=== PATIENT | male | born 1960 | race African-American/Black ===

== ENCOUNTER 2019-02-08 18:21 | Inpatient (IN) | payer MEDICARE ==
[2019-02-08 20:34] LABS: #Basophils 0.1 thou/uL (0.0-0.2); #Eosinphils 0.2 thou/uL (0.0-0.7); #Lymphocytes 1.1 thou/uL (1.20-3.40); #Monocytes 0.5 thou/uL (0.11-0.59); %Basophils 1.3 % (0.0-1.0); %Lymphocytes 28.9 % (21.0-51.0); %Monocytes 12.8 % (0.0-10.0); Hemoglobin 10.8 g/dL (14.0-18.0); Mean Corpuscular HGB CONC 33.5 g/dL (32.0-36.0); Mean Corpuscular Hemoglobin 30.2 pg (27.0-31.0); Mean Corpuscular Volume 90.4 fL (78.0-98.0); Mean Platelet Volume 7.2 fL (7.4-10.4); Platelet Count 283 thou/uL (130-400); RBC Distribution Width 14.2 % (11.5-14.5); Red Blood Cell (RBC) Count 3.57 mill/uL (4.70-6.10); White Blood Cell (WBC) Count 3.8 thou/uL (4.8-10.8)
[2019-02-08 20:52] LABS: Anion Gap 12 mmol/L (10-20); BUN (Urea Nitrogen) 60 mg/dL (8.4-25.7); Calc. Creatinine Clearance 0 mL/min (70-130); Calcium 8.9 mg/dL (7.8-10.44); Carbon Dioxide 18 mmol/L (23-31); Chloride 112 mmol/L (98-107); Estimated GFR-MDRD 10; Glucose 91 mg/dL (80-115); Potassium 4.1 mmol/L (3.5-5.1); Sodium 138 mmol/L (136-145)
[2019-02-08] MEDS ORDERED: Ondansetron ODT 4 MG TAB SL PRN (21:43)
[2019-02-08] MEDS ORDERED: Ondansetron PF 4 MG/2 ML Vial IVP PRN (21:43)
[2019-02-08 22:33] VITALS: BMI 51.7
[2019-02-08] MEDS: diphenhydrAMINE 25 MG CAP PO PRN (22:51)
--- NOTE | 2019-02-09 00:11 | PDOC.EVN ---
Event Note - Event Note Event Note: H&P dictated [id number]
[2019-02-09] MEDS ORDERED: Furosemide 40 MG/4 ML VIAL SLOW IVP SCH (00:15)
--- NOTE | 2019-02-09 04:51 | HP ---
CHIEF COMPLAINT: Shortness of breath and leg swelling. HISTORY OF PRESENT ILLNESS: Mr. Ozuna is a 59-year-old male with past medical history of chronic kidney disease, congestive heart failure, sleep apnea, hypertension, diabetes, among others, transferred from [facility] at [place] with diagnosis of acute on chronic renal failure. The patient presented to the ED at [place] with shortness of breath, increasing swelling of both legs. The patient was evaluated by cardiologists over there. The patient has a history of chronic kidney disease and been seen by Dr. Zurita in the past. In the emergency room, the patient was found to have pitting edema, tachypneic, and has had increasing creatinine to 6.9. Hemoglobin was 9.3 and BUN is 150. Chest x-ray showed no acute findings. Troponin negative. The patient is being admitted to the hospital for further management and home maker is being consulted. PAST MEDICAL HISTORY: 1. Chronic kidney disease. 2. Sleep apnea. 3. Congestive heart failure. 4. CVA. 5. Diabetes. 6. Hypertension. PAST SURGICAL HISTORY: 1. Appendectomy. 2. Cholecystectomy. SOCIAL HISTORY: Denies alcohol use. He is a former smoker. ALLERGIES: LISINOPRIL. HOME MEDICATIONS: Please see home medications reconciliation form for updated medications. FAMILY HISTORY: Reviewed and noncontributory. REVIEW OF SYSTEMS: Review of 14-systems negative today except what is mentioned in the history of present illness. PHYSICAL EXAMINATION: VITAL SIGNS: Initial blood pressure was 161/115, latest blood pressure is 144/95; respiratory rate is 28, now it is 24; temperature is 98.7; pulse of 94. HEAD AND NECK: Normocephalic and atraumatic. Neck is supple. CHEST: Decreased air entry bilaterally. HEART: S1 and S2 regular. ABDOMEN: Obese and soft. Bowel sounds present. NEUROLOGIC: Awake, alert, and oriented x3. PSYCHIATRIC: Normal mood. EXTREMITIES: 2+ pedal edema. LABORATORY DATA: BUN is 60, creatinine 6.9, potassium 4.1. Hemoglobin 10.8, hematocrit 32.3, glucose 91. ASSESSMENT AND PLAN: 1. Acute on chronic renal failure. 2. Hypertension. 3. Diabetes. 4. Coronary artery disease. 5. History of CVA. 6. Hyperlipidemia. PLAN: 1. Admit. 2. We will give 1 dose of IV Lasix and reassess in a.m. 3. We will consult patient's home maker, Dr. Zurita, for evaluation and further recommendations. 4. We will reconcile home meds. 5. Deep venous thrombosis prophylaxis with SCDs, gradually ambulation. EXPECTED LENGTH OF STAY: At least 1 midnight if the patient is stable and cleared by Nephrology. Job ID: [id number]
[2019-02-09] MEDS: glipiZIDE 5 MG TAB PO SCH ×2 (08:38→20:48)
[2019-02-09] MEDS: Allopurinol 300 MG TAB PO SCH (08:38)
[2019-02-09] MEDS: Carvedilol 25 MG TAB PO SCH ×2 (08:38→20:48)
[2019-02-09] MEDS: Aggrenox 200-25mg CAP PO SCH ×2 (08:38→20:48)
[2019-02-09] MEDS: Famotidine 20 MG TAB PO SCH ×2 (08:38→20:48)
[2019-02-09] MEDS: NIFEdipine XL 30 MG TAB PO SCH (08:39)
[2019-02-09] MEDS: Sodium Bicarbonate Tab 325 MG TAB PO SCH ×3 (08:40→20:49)
[2019-02-09] MEDS: Tamsulosin HCl 0.4 MG CAP PO SCH (08:41)
[2019-02-09 10:05] LABS: HBSAB Concentration 1.29 mIU/mL; HBSAg Index 0.12 S/CO (0-0.99); Hep B Surf AB Non-Reactive (NonReactive); Hep B Surf Ag Non-Reactive S/CO (NonReactive); Hep C IgG Ab Non-Reactive (NonReactive); Hep C Index 0.04 S/CO (0-0.79)
--- NOTE | 2019-02-09 10:33 | CON ---
DATE OF CONSULTATION: REASON FOR CONSULTATION: Generalized edema, progressive rise in creatinine. HISTORY OF PRESENT ILLNESS: This is a very pleasant 59-year-old gentleman who presented to the hospital earlier this morning for progressive rise in creatinine and shortness of breath and leg swelling. The patient denies any nausea, vomiting, or chest pain. PAST MEDICAL HISTORY: CKD, stage 5; hypertension; sleep apnea; congestive heart failure; and CVA. PAST SURGICAL HISTORY: Appendectomy, cholecystectomy. SOCIAL HISTORY: No alcohol or drug use. FAMILY HISTORY: Negative for ESRD. ALLERGIES: REVIEWED. HOME MEDICATIONS: List reviewed. REVIEW OF SYSTEMS: Fifteen-point review of systems was performed, negative except for positives noted above. GENERAL: HEAD: NECK: No swelling or lumps. NOSE: No epistaxis or discharge. EYES: No diplopia or pain. RESPIRATORY: CARDIOVASCULAR: GASTROINTESTINAL: /COMPOSITION ROOFER: MUSCULOSKELETAL: No joint pain. NEUROPSYCHIATIC SYSTEMS: No suicidal ideation. No ideation. SKIN: Denies any rash or ulcer. CONSTITUTIONAL: No fever or chills. PHYSICAL EXAMINATION: See above. The patient is awake, alert. VITAL SIGNS: Afebrile, pulse 76, breathing 16, and blood pressure 149/90. GENERAL APPEARANCE AND MENTAL STATUS: Fair. HEAD/NECK: Normocephalic. Atraumatic. EYES: EOMI. No deformity. EARS: Clear. No ulcers. NOSE: Intact. No lesions. MOUTH: Clear. No discharge. THROAT: Clear. No exudate. LUNGS: Clear. No crackles. CARDIAC: S1, S2. No rub. ABDOMEN: Benign. Bowel sounds positive. GENITALIA/RECTUM: Samson absent. BACK/EXTREMITIES: Edema 0+. NEUROLOGICAL: Alert and motor intact. SKIN: LYMPHATICS: LABORATORY DATA: Hemoglobin 10.8. Potassium is 4.1, creatinine 6.9. ASSESSMENT AND PLAN: 1. Chronic kidney disease, stage 5, progressive rise in creatinine and generalized edema, failed diuretic therapy. We will plan dialysis. 2. Hypertension, stable. 3. Anemia, stable. 4. Medication based on GFR appropriate. Job ID: [id number]
[2019-02-09 11:11] LABS: Hep B Core Total Ab Reactive (NonReactive); Hep B Core Total Index 10.84 S/CO (0-0.79)
--- NOTE | 2019-02-09 12:20 | ULT ---
ULTRASOUND VESSEL MAPPING DIALYSIS ACCESSS: Date: 02/09/19 HISTORY: Chronic kidney disease. COMPARISON: None. FINDINGS: RIGHT UPPER EXTREMITY BRACHIAL ARTERY: 0.61 cm RADIAL ARTERY: 0.30 cm ULNAR ARTERY: 0.27 cm CEPHALIC VEIN Proximal Arm: 0.20 cm Mid Arm: 0.15 cm Distal Arm: 0.16 cm Antecubital Fossa: 0.16 cm Proximal Forearm: 0.10 cm Mid Forearm: 0.08 cm Distal Forearm: 0.13 cm BASILIC VEIN Proximal Arm: 0.47 cm Mid Arm: 0.38 cm Distal Arm: 0.34 cm Antecubital Fossa: 0.26 cm Proximal Forearm: 0.22 cm Mid Forearm: 0.13 cm Distal Forearm: 0.11 cm LEFT UPPER EXTREMITY BRACHIAL ARTERY: 0.58 cm RADIAL ARTERY: 0.32 cm ULNAR ARTERY: 0.27 cm CEPHALIC VEIN Proximal Arm: 0.15 cm Mid Arm: 0.15 cm Distal Arm: 0.13 cm Antecubital Fossa: 0.18 cm Proximal Forearm: 0.15 cm Mid Forearm: 0.15 cm Distal Forearm: 0.17 cm BASILIC VEIN Proximal Arm: 0.26 cm Mid Arm: 0.26 cm Distal Arm: 0.16 cm Antecubital Fossa: 0.17 cm Proximal Forearm: 0.12 cm Mid Forearm: 0.17 cm Distal Forearm: 0.09 cm Bilateral axillary and subclavian veins are patent. Left internal jugular vein is patent, as well as the right internal jugular vein. IMPRESSION: Vascular size as above. POS: [facility]
--- NOTE | 2019-02-09 14:08 | PDOC.HOSPP ---
- Subjective Encounter Date: 02/09/19 Encounter Time: 09:20 Subjective: Pt seen for followup re: ESRD needing dialysis. says he feels well, no complaints. - Objective Vital Signs & Weight: Vital Signs (12 hours) Temp Pulse Resp BP BP Pulse Ox 02/09/19 11:03 97.3 F L 73 26 H 141/82 H 98 02/09/19 08:39 76 154/99 H 02/09/19 08:38 94 L 02/09/19 07:49 98.1 F 76 18 148/98 H 94 L 02/09/19 04:30 97.8 F 86 18 127/80 94 L Weight Weight 310 lb 13.628 oz I&O: 02/08/19 02/09/19 02/10/19 06:59 06:59 06:59 Intake Total 450 Balance 450 Result Diagrams: 02/08/19 20:26 02/08/19 20:26 Additional Labs: Accuchecks 02/09/19 02/09/19 02/09/19 12:15 11:38 04:35 POC Glucose 138 H 65 L 96 02/08/19 20:06 POC Glucose 101 Labs and MARs reviewed by ar Hospitalist ROS - Review of Systems Cardiovascular: denies: chest pain, palpitations, orthopnea, paroxysmal noc. dyspnea, edema, light headedness Gastrointestinal: denies: nausea, vomiting, abdominal pain, diarrhea, constipation, melena, hematochezia - Medication Medications: Active Medications Generic Name Dose Route Start Last Admin Trade Name Freq PRN Reason Stop Dose Admin Allopurinol 300 mg 02/09/19 09:00 02/09/19 08:38 Zyloprim PO 300 mg DAILY ADRIENNE Administration Carvedilol 25 mg 02/09/19 09:00 02/09/19 08:38 Coreg PO 25 mg BID ADRIENNE Administration Diphenhydramine HCl 25 mg 02/08/19 22:40 02/08/19 22:51 Benadryl PO 25 mg Q6H PRN Administration Itching & Insomnia Dipyridamole/Aspirin 1 cap 02/09/19 09:00 02/09/19 08:38 Aggrenox PO 1 cap BID ADRIENNE Administration Famotidine 20 mg 02/09/19 09:00 02/09/19 08:38 Pepcid PO 20 mg BID ADRIENNE Administration Glipizide 2.5 mg 02/09/19 09:00 02/09/19 08:38 Glucotrol PO 2.5 mg BID ADRIENNE Administration Nifedipine 30 mg 02/09/19 09:00 02/09/19 08:39 Procardia Xl PO 30 mg DAILY ADRIENNE Administration Sodium Bicarbonate 650 mg 02/09/19 09:00 02/09/19 13:53 Bicarbonate, Sodium PO Not Given TID ADRIENNE Sodium Chloride 10 ml 02/09/19 09:00 02/09/19 08:41 Flush - Normal Saline IVF 10 ml Q12HR ADRIENNE Administration Tamsulosin HCl 0.4 mg 02/09/19 09:00 02/09/19 08:41 Flomax PO 0.4 mg DAILY ADRIENNE Administration - Exam General - other findings: Morbid obesity Eye: anicteric sclera ENT: moist mucosa Neck: supple Heart: RRR Respiratory: CTAB Gastrointestinal: soft Extremities: 2+ LE edema Skin - other findings: dann LE stasis dermatitis Musculoskeletal: normal strength Psychiatric: normal affect, normal behavior Hosp A/P (1) ESRD needing dialysis Code(s): N18.6 - END STAGE RENAL DISEASE; Z99.2 - DEPENDENCE ON RENAL DIALYSIS Status: Acute (2) DM2 (diabetes mellitus, type 2) Status: Chronic (3) HTN (hypertension) Code(s): I10 - ESSENTIAL (PRIMARY) HYPERTENSION Status: Chronic - Plan out of bed/ambulate Dialysis to be started during this hospitalization. Continue accuchecks, insulin sliding scale. Reasonable control of blood pressure. Monitor vital signs and titrate antihypertensives as needed.
[2019-02-09] MEDS ORDERED: PROPOFOL 200 MG/20 ML VIAL ONE (15:05)
[2019-02-09] MEDS ORDERED: Lidocaine 1% PF 5 ML VIAL ONE (15:05)
[2019-02-09] MEDS ORDERED: Ondansetron PF 4 MG/2 ML Vial ONE (15:05)
[2019-02-09] MEDS ORDERED: Dextrose 5% in Water 1,000 ML IV PRN (16:38)
[2019-02-09] MEDS ORDERED: HumaLOG 300 UNITS/3 ML VIAL SC PRN (16:38)
[2019-02-09] MEDS ORDERED: Dextrose 50% Abboject 50 ML SYRINGE SLOW IVP PRN (16:38)
[2019-02-09] MEDS ORDERED: Dextrose 50% Abboject 50 ML SYRINGE ONE (16:41)
[2019-02-09] MEDS ORDERED: CEFAZOLIN 2 GM in Premix Bag 1 BAG IVPB SCH (16:45)
--- NOTE | 2019-02-09 17:43 | CON ---
DATE OF CONSULTATION: 02/09/2019 REASON FOR CONSULTATION: Need for dialysis access. HISTORY OF PRESENT ILLNESS: Mr. Ozuna is a 59-year-old man, who was admitted to the hospital for institution of dialysis. He has had increasing swelling in his lower extremities, and diuretics have not been effective due to worsening renal failure. He has not been on dialysis before, but has 2 sisters who were on dialysis. He is not currently short of breath, but states that he does get short of breath with ambulating. He denies orthopnea or angina. PAST MEDICAL HISTORY: Diabetes type 2; hypertension; heart failure, although he does not know his ejection fraction, he states that he does follow up with his pin ball machine mechanic on a regular basis and has been told that his heart is doing okay; morbid obesity; 3 strokes, 1 over 10 years ago and 2 in 2012 with some mild residual right-sided weakness and diminished hearing in his right ear. PAST SURGICAL HISTORY: Appendectomy and laparoscopic cholecystectomy. FAMILY HISTORY: Renal failure. ALLERGIES: JIMMY INHIBITORS CAUSE SWELLING IN HIS NECK. NO OTHER KNOWN DRUG ALLERGIES. OUTPATIENT MEDICATIONS: Include, 1. Hydralazine. 2. Bicarbonate. 3. Carvedilol. 4. Glipizide. 5. Nifedipine. 6. Pepcid. 7. Aggrenox. 8. Allopurinol. 9. Pravachol. 10. Flomax. 11. Potassium. CURRENT INPATIENT MEDICATIONS: Include, 1. Allopurinol. 2. Carvedilol. 3. Aggrenox. 4. Pepcid. 5. Glipizide. 6. Sliding scale insulin. 7. Nifedipine. 8. Pravastatin. 9. Sodium bicarbonate. 10. Flomax. REVIEW OF SYSTEMS: Ten-system review of systems is negative except per HPI. PHYSICAL EXAMINATION: VITAL SIGNS: The patient is afebrile. Heart rate 81, respirations 20, 97% saturated on room air, and blood pressure 127/84. GENERAL: Reveals a morbidly obese gentleman, in no acute distress. He is not flushed or toxic in appearance. He is not jaundiced or icteric. HEENT: Unremarkable. NECK: Supple without lymphadenopathy or thyroid nodules. HEART: Regular in its rate and rhythm without murmurs, rubs, or gallops. LUNGS: Clear to auscultation bilaterally. ABDOMEN: Soft, nontender, nondistended with healed laparoscopic incisions. No palpable masses or hernias. EXTREMITIES: Warm and well perfused. He does have moderate pitting edema in both lower extremities and mild edema in his hands. He has palpable cephalic and antecubital veins on both sides and normal filling on Jimenez testing from both arteries on both sides. NEUROLOGIC: No detectable focal deficit, although the patient states that he is unable to stand very long because his right leg gets weak. PSYCHIATRIC: Alert, oriented and appropriate. LABORATORY DATA: White count is low at 3.8, hematocrit is 32.3, and platelets are 283. BUN and creatinine are 60 and 6.96, potassium is 4.1, bicarb is 18. Vein mapping shows a rather small cephalic vein on the right, but a good size upper arm basilic vein. On the left, cephalic vein is on the small side, but the basilic vein is reasonable caliber above the elbow. ASSESSMENT: Chronic renal failure, which has progressed to need for dialysis due to fluid retention. He is not dyspneic, but is retaining fluid in his lower extremities and his soft mud molder decided to institute dialysis. He will require access for this and tunneled dialysis catheter has been requested. The inherent risks of tunneled dialysis catheter placement were discussed with the patient. These include, but are not limited to, bleeding, infection, risks of anesthesia, hemothorax, pneumothorax, DVT, and need for other procedures. He understands and accepts these risks and wishes to proceed. We briefly discussed options of hemodialysis and peritoneal dialysis, and the patient strongly prefers hemodialysis. Since he is right handed, we will plan on a left upper extremity fistula sometime next week after he has had some of the fluid removed by dialysis. Tentatively, I have him on the schedule for Tuesday. The inherent risks of fistula placement were discussed with the patient. These include, but are not limited to, bleeding, infection, risks of anesthesia, failure of the fistula to develop, need for other procedures to obtain or maintain patency, and arterial steal which can lead to ischemic damage to the hand. He understands and accepts these risks and wishes to proceed. All of his questions were answered. Antibiotics have been ordered on-call to OR for his tunneled dialysis catheter today. Job ID: [id number]
[2019-02-09] MEDS ORDERED: Sodium Chloride 0.9% 30 ML ONE (17:46)
[2019-02-09] MEDS ORDERED: Lidocaine 2% PF 5 ML VIAL ONE (17:46)
[2019-02-09] MEDS ORDERED: Heparin 10,000 UNITS/1 ML VIAL ONE (17:46)
[2019-02-09] MEDS ORDERED: Bupivacaine/Epinephrine 0.25% 30 ML VIAL ONE (17:46)
[2019-02-09] MEDS ORDERED: Midazolam HCl 2 mg/2 ml Vial ONE (17:49)
[2019-02-09] MEDS ORDERED: PROPOFOL 60 ML ONE (17:49)
[2019-02-09] MEDS ORDERED: Famotidine/PF 20 mg/2ml Vial ONE (17:49)
[2019-02-09] MEDS ORDERED: Fentanyl 100 MCG/2 ML VIAL ONE (17:49)
[2019-02-09] MEDS ORDERED: Promethazine HCl 25 MG/ML VIAL SLOW IVP PRN (18:45)
[2019-02-09] MEDS ORDERED: Promethazine HCl 25 MG/ML VIAL IM PRN (18:45)
[2019-02-09] MEDS ORDERED: Ondansetron HCl/PF 4 MG/2 ML Vial IVP PRN (18:45)
--- NOTE | 2019-02-09 19:30 | RAD ---
PORTABLE CHEST: 02/09/19 HISTORY: Catheter placement. COMPARISON: 11/26/12 exam. Heart size is enlarged. Aorta is tortuous. A right sided Hemosplit catheter is present. The catheter tip overlies the superior vena cava. No signs of pneumothorax. IMPRESSION: No evidence of pneumothorax post catheter placement. POS: [facility]
[2019-02-09] MEDS: Pravastatin Sodium 40 MG TAB PO SCH (20:49)
[2019-02-09] MEDS: diphenhydrAMINE 25 MG CAP PO PRN (22:25)
[2019-02-09] MEDS: Acetaminophen/Codeine 30-300mg Tablet PO PRN (22:25)
[2019-02-10] MEDS: Acetaminophen/Codeine 30-300mg Tablet PO PRN ×3 (04:03→20:58)
[2019-02-10 08:58] LABS: #Eosinphils 0.3 thou/uL (0.0-0.7); #Lymphocytes 1.2 thou/uL (1.20-3.40); #Monocytes 0.5 thou/uL (0.11-0.59); #Neutrophils 2.2 thou/uL (1.40-6.50); %Basophils 0.5 % (0.0-1.0); %Eosinophils 6.4 % (0.0-10.0); %Lymphocytes 27.6 % (21.0-51.0); %Monocytes 12.3 % (0.0-10.0); %Neutrophils 53.3 % (42.0-75.0); Hemoglobin 10.5 g/dL (14.0-18.0); Mean Corpuscular HGB CONC 33.3 g/dL (32.0-36.0); Mean Corpuscular Hemoglobin 29.9 pg (27.0-31.0); Mean Corpuscular Volume 89.7 fL (78.0-98.0); Mean Platelet Volume 7.3 fL (7.4-10.4); Platelet Count 274 thou/uL (130-400); RBC Distribution Width 14.1 % (11.5-14.5); Red Blood Cell (RBC) Count 3.52 mill/uL (4.70-6.10); White Blood Cell (WBC) Count 4.2 thou/uL (4.8-10.8)
[2019-02-10 09:16] LABS: Anion Gap 14 mmol/L (10-20); BUN (Urea Nitrogen) 60 mg/dL (8.4-25.7); Calc. Creatinine Clearance 22 mL/min (70-130); Calcium 8.6 mg/dL (7.8-10.44); Carbon Dioxide 16 mmol/L (23-31); Chloride 110 mmol/L (98-107); Estimated GFR-MDRD 10; Glucose 119 mg/dL (80-115); Potassium 3.6 mmol/L (3.5-5.1); Sodium 136 mmol/L (136-145)
[2019-02-10] MEDS: Carvedilol 25 MG TAB PO SCH ×2 (10:14→20:56)
[2019-02-10] MEDS: Sodium Bicarbonate Tab 325 MG TAB PO SCH ×3 (10:15→20:57)
[2019-02-10] MEDS: NIFEdipine XL 30 MG TAB PO SCH (10:15)
[2019-02-10] MEDS: glipiZIDE 5 MG TAB PO SCH ×2 (10:15→20:57)
[2019-02-10] MEDS: Aggrenox 200-25mg CAP PO SCH ×2 (10:16→20:56)
[2019-02-10 12:36] LABS: HBCM Index 0.06 S/CO (0-0.79); Hepatitis B Core IgM Abs Non-Reactive (NonReactive)
--- NOTE | 2019-02-10 13:43 | PRG ---
DATE OF SERVICE: 02/10/2019 SUBJECTIVE: A 59-year-old gentleman, being seen for end-stage renal disease. The patient denied nausea, vomiting, or chest pain. OBJECTIVE: CONSTITUTIONAL: The patient is awake and alert. VITAL SIGNS: Afebrile, pulse 73, breathing 16, blood pressure 131/98. GENERAL APPEARANCE AND MENTAL STATUS: Fair. HEAD/NECK: Normocephalic. Atraumatic. EYES: EOMI. No deformity. EARS: Clear. No ulcers. NOSE: Intact. No lesions. MOUTH: Clear. No discharge. THROAT: Clear. No exudate. LUNGS: Clear. No crackles. CARDIAC: S1, S2. No rub. ABDOMEN: Benign. Bowel sounds positive. GENITALIA/RECTUM: Samson absent. BACK/EXTREMITIES: Edema 0+. NEUROLOGICAL: Alert and motor intact. SKIN: LYMPHATICS: LABORATORY DATA: Reviewed. ASSESSMENT AND PLAN: 1. Stage 6 chronic kidney disease, plan dialysis. 2. Hypertension, stable. 3. Anemia, stable. 4. Medication based on GFR appropriate. Job ID: [id number]
--- NOTE | 2019-02-10 14:36 | PDOC.OP ---
Operative Note - Operative Note Operative Note: DATE OF PROCEDURE: 02/09/2019 PROCEDURE: Placement of right internal jugular tunneled hemodialysis catheter with ultrasound and fluoroscopic guidance. SURGEON: Osmar Gleason M.D. PREOPERATIVE DIAGNOSIS: Chronic renal failure. POSTOPERATIVE DIAGNOSIS: Chronic renal failure. HISTORY: Patient with worsening renal failure requires initiation of dialysis.. A tunneled hemodialysis cathete has been requested by the patients barge engineer. PROCEDURE: After informed consent was obtained and appropriate preoperative antibiotics were administered, the patient was taken to the Operating Room, placed in the supine position and monitored anesthesia care was administered. The neck and chest were prepped and draped in a standard sterile fashion and the patient placed in Trendelenburg position. A sterile ultrasound probe was used to identify the patent compressible right IJ vein which was accessed under direct ultrasound guidance. A wire was threaded through the needle and confirmed by ultrasound to be within the patent compressible vessel with the tip in the vena cava by fluoroscopy. Local anesthesia was infused to the skin and subcutaneous tissues of the right neck and chest. An infraclavicular incision was made and a catheter tunneled from the infraclavicular to the right IJ access site. The right IJ was sequentially dilated over the wire following which a dilator and sheath were placed over the wire and the dilator and wire removed leaving the sheath in place. The catheter was tunneled through the sheath which was then split and removed leaving the catheter in place. This was confirmed by fluoroscopy to be in good position in the superior vena cava with no kinking of the course of the catheter. Both ports easily aspirated dark venous nonpulsatile blood and easily flushed without resistance. Heparin was instilled to the quantity specified on the hub, and the hub was secured to the skin with 3-0 nylon sutures. The skin incision at the neck was closed in two layers with 4-0 Monocryl suture and Dermabond dressings were placed. The skin at the exit site was snugged up around the catheter with 4-0 Monocryl suture and Dermabond was placed there as well. Once the Dermabond was dry, a Biopatch and Tegaderm dressing was placed at the exit site. The patient was taken to Recovery in good condition. Estimated blood loss was minimal. There were no complications. There were no specimens.
[2019-02-10] MEDS: Famotidine 20 MG TAB PO SCH (14:57)
[2019-02-10] MEDS: Allopurinol 300 MG TAB PO SCH (14:58)
[2019-02-10] MEDS: Tamsulosin HCl 0.4 MG CAP PO SCH (14:58)
--- NOTE | 2019-02-10 15:36 | EKG ---
Test Reason : Blood Pressure : / mmHG Vent. Rate : 093 BPM Atrial Rate : 093 BPM P-R Int : 176 ms QRS Dur : 082 ms QT Int : 388 ms P-R-T Axes : 021 018 064 degrees QTc Int : 482 ms Sinus rhythm with Premature atrial complexes Prolonged QT Abnormal ECG Confirmed by DIANA RUEDA ([id number]), science editor ANDREA CABALLERO ([id number]) on 02/10/2019 3:36:16 PM Referred By: Confirmed By:DIANA RUEDA
--- NOTE | 2019-02-10 17:03 | PDOC.HOSPP ---
- Subjective Encounter Date: 02/10/19 Encounter Time: 09:20 Subjective: Pt seen for followup re; ESRD needing dialysis. Feels well, no complaints. - Objective Vital Signs & Weight: Vital Signs (12 hours) Temp Pulse Resp BP BP Pulse Ox 02/10/19 14:45 98 F 83 18 146/94 H 98 02/10/19 09:11 76 93 L 02/10/19 08:28 93 L 02/10/19 08:00 97.6 F 84 16 131/98 H Weight Weight 310 lb 13.628 oz I&O: 02/09/19 02/10/19 02/11/19 06:59 06:59 06:59 Intake Total 450 1420 Balance 450 1420 Result Diagrams: 02/10/19 08:46 02/10/19 08:46 Additional Labs: Accuchecks 02/10/19 02/09/19 02/09/19 04:35 20:06 17:36 POC Glucose 79 79 124 H 02/09/19 16:34 POC Glucose 77 Labs and MARs reviewed by ne Hospitalist ROS - Review of Systems Cardiovascular: denies: chest pain, palpitations, orthopnea, paroxysmal noc. dyspnea, edema, light headedness Gastrointestinal: denies: nausea, vomiting, abdominal pain, diarrhea, constipation, melena, hematochezia - Medication Medications: Active Medications Generic Name Dose Route Start Last Admin Trade Name Freq PRN Reason Stop Dose Admin Acetaminophen/Codeine Phosphate 1 tab 02/09/19 22:05 02/10/19 08:28 Tylenol #3 PO 1 tab Q4H PRN Administration Moderate Pain (4-6) Allopurinol 300 mg 02/09/19 09:00 02/10/19 14:58 Zyloprim PO 300 mg DAILY ADRIENNE Administration Carvedilol 25 mg 02/09/19 09:00 02/10/19 10:14 Coreg PO Not Given BID ADRIENNE Diphenhydramine HCl 25 mg 02/08/19 22:40 02/09/19 22:25 Benadryl PO 25 mg Q6H PRN Administration Itching & Insomnia Dipyridamole/Aspirin 1 cap 02/09/19 09:00 02/10/19 10:16 Aggrenox PO Not Given BID ADRIENNE Famotidine 20 mg 02/10/19 09:00 02/10/19 14:57 Pepcid PO 20 mg DAILY ADRIENNE Administration Glipizide 2.5 mg 02/09/19 09:00 02/10/19 10:15 Glucotrol PO Not Given BID ADRIENNE Nifedipine 30 mg 02/09/19 09:00 02/10/19 10:15 Procardia Xl PO Not Given DAILY ADRIENNE Pravastatin Sodium 80 mg 02/09/19 21:00 02/09/19 20:49 Pravachol PO 80 mg HS ADRIENNE Administration Sodium Bicarbonate 650 mg 02/09/19 09:00 02/10/19 14:57 Bicarbonate, Sodium PO 650 mg TID ADRIENNE Administration Sodium Chloride 10 ml 02/09/19 09:00 02/10/19 14:58 Flush - Normal Saline IVF 10 ml Q12HR ADRIENNE Administration Tamsulosin HCl 0.4 mg 02/09/19 09:00 02/10/19 14:58 Flomax PO 0.4 mg DAILY ADRIENNE Administration - Exam General - other findings: Morbid obesity Eye: anicteric sclera ENT: moist mucosa Neck: supple, symmetric Heart: RRR Respiratory: CTAB, no wheezes Gastrointestinal: soft, non-tender Extremities: 1+ LE edema Psychiatric: normal affect, normal behavior Hosp A/P (1) ESRD needing dialysis Code(s): N18.6 - END STAGE RENAL DISEASE; Z99.2 - DEPENDENCE ON RENAL DIALYSIS Status: Acute (2) DM2 (diabetes mellitus, type 2) Status: Chronic (3) HTN (hypertension) Code(s): I10 - ESSENTIAL (PRIMARY) HYPERTENSION Status: Chronic (4) Morbid obesity Code(s): E66.01 - MORBID (SEVERE) OBESITY DUE TO EXCESS CALORIES Status: Chronic - Plan out of bed/ambulate Dialysis to be started today. Blood sugars controlled. Blood pressure reasonably controlled.
[2019-02-10] MEDS: Pravastatin Sodium 40 MG TAB PO SCH (20:57)
[2019-02-10] MEDS: diphenhydrAMINE 25 MG CAP PO PRN (20:58)
[2019-02-11 06:23] LABS: Eosinophils 9 % (0-10); Hemoglobin 9.1 g/dL (14.0-18.0); Lymphocytes 34 % (21-51); MDiff Complete? YES; Mean Corpuscular HGB CONC 33.5 g/dL (32.0-36.0); Mean Corpuscular Volume 89.5 fL (78.0-98.0); Mean Platelet Volume 7.7 fL (7.4-10.4); Monocytes 10 % (0-10); Neutrophil 47 % (42-75); Platelet Count 235 thou/uL (130-400); RBC Distribution Width 14.1 % (11.5-14.5); Red Blood Cell (RBC) Count 3.02 mill/uL (4.70-6.10); White Blood Cell (WBC) Count 3.5 thou/uL (4.8-10.8)
[2019-02-11 06:26] LABS: Anion Gap 11 mmol/L (10-20); BUN (Urea Nitrogen) 47 mg/dL (8.4-25.7); Calc. Creatinine Clearance 23 mL/min (70-130); Calcium 8.1 mg/dL (7.8-10.44); Carbon Dioxide 21 mmol/L (23-31); Chloride 108 mmol/L (98-107); Estimated GFR-MDRD 10; Potassium 3.4 mmol/L (3.5-5.1); Sodium 137 mmol/L (136-145)
[2019-02-11 06:40] LABS: Glucose 58 mg/dL (80-115)
[2019-02-11] MEDS ORDERED: Heparin 10,000 UNITS/ 10 ML VIAL ONE (09:00)
[2019-02-11] MEDS: NIFEdipine XL 30 MG TAB PO SCH ×2 (10:58→13:12)
[2019-02-11] MEDS: Aggrenox 200-25mg CAP PO SCH ×2 (10:58→20:14)
[2019-02-11] MEDS: Carvedilol 25 MG TAB PO SCH ×2 (10:58→20:14)
[2019-02-11] MEDS: Sodium Bicarbonate Tab 325 MG TAB PO SCH (10:58)
[2019-02-11] MEDS: Tamsulosin HCl 0.4 MG CAP PO SCH (12:37)
[2019-02-11] MEDS: Famotidine 20 MG TAB PO SCH (12:38)
[2019-02-11] MEDS: Acetaminophen/Codeine 30-300mg Tablet PO PRN (12:39)
[2019-02-11] MEDS: Allopurinol 300 MG TAB PO SCH (13:13)
--- NOTE | 2019-02-11 13:31 | PRG ---
DATE OF SERVICE: 02/11/2019 SUBJECTIVE: This is a 59-year-old male being seen for end-stage renal disease. The patient denied any nausea, vomiting, or chest pain. OBJECTIVE: CONSTITUTIONAL: On examination, the patient is awake and alert. VITAL SIGNS: Afebrile, pulse 70, breathing 16, and blood pressure 130/79. GENERAL APPEARANCE AND MENTAL STATUS: Fair. HEAD/NECK: Normocephalic. Atraumatic. EYES: EOMI. No deformity. EARS: Clear. No ulcers. NOSE: Intact. No lesions. MOUTH: Clear. No discharge. THROAT: Clear. No exudate. LUNGS: Clear. No crackles. CARDIAC: S1, S2. No rub. ABDOMEN: Benign. Bowel sounds positive. GENITALIA/RECTUM: Samson absent. BACK/EXTREMITIES: Edema 0+. NEUROLOGICAL: Alert and motor intact. SKIN: LYMPHATICS: LABORATORY DATA: Reviewed. ASSESSMENT AND PLAN: 1. Stage 6 chronic kidney disease. Plan dialysis today. 2. Hypertension. We will stop hydralazine and Procardia as the patient's blood pressure has been normalizing and follow blood pressure. Can add nifedipine if needed. 3. Anemia, stable. Medications based on glomerular filtration rate. Decrease allopurinol to 200 and also stop sodium bicarbonate. Job ID: [id number]
--- NOTE | 2019-02-11 16:43 | PDOC.HOSPP ---
- Subjective Encounter Date: 02/11/19 Encounter Time: 09:40 Subjective: Pt seen for followup re: esrd needing dialysis. No complaints. - Objective Vital Signs & Weight: Vital Signs (12 hours) Temp Pulse Resp BP BP Pulse Ox 02/11/19 15:17 97.8 F 75 18 141/91 H 95 02/11/19 12:33 97.8 F 64 18 145/108 H 95 02/11/19 07:59 97.8 F 79 16 130/79 98 Weight Weight 310 lb 13.628 oz I&O: 02/10/19 02/11/19 02/12/19 06:59 06:59 06:59 Intake Total 1420 1210 Balance 1420 1210 Result Diagrams: 02/11/19 05:16 02/11/19 05:16 Additional Labs: Accuchecks 02/11/19 02/11/19 02/11/19 16:17 15:16 12:33 POC Glucose 123 H 89 88 02/11/19 02/10/19 02/10/19 06:45 19:13 16:45 POC Glucose 87 113 H 125 H Labs and MARs reviewed by fl Hospitalist ROS - Review of Systems Gastrointestinal: denies: nausea, vomiting, abdominal pain, diarrhea, constipation, melena, hematochezia Genitourinary: denies: dysuria, frequency, incontinence, hematuria, retention - Medication Medications: Active Medications Generic Name Dose Route Start Last Admin Trade Name Freq PRN Reason Stop Dose Admin Acetaminophen/Codeine Phosphate 1 tab 02/09/19 22:05 02/11/19 12:39 Tylenol #3 PO 1 tab Q4H PRN Administration Moderate Pain (4-6) Carvedilol 25 mg 02/09/19 09:00 02/11/19 10:58 Coreg PO Not Given BID ADRIENNE Diphenhydramine HCl 25 mg 02/08/19 22:40 02/10/19 20:58 Benadryl PO 25 mg Q6H PRN Administration Itching & Insomnia Dipyridamole/Aspirin 1 cap 02/09/19 09:00 02/11/19 10:58 Aggrenox PO Not Given BID ADRIENNE Famotidine 20 mg 02/10/19 09:00 02/11/19 12:38 Pepcid PO 20 mg DAILY ADRIENNE Administration Pravastatin Sodium 80 mg 02/09/19 21:00 02/10/19 20:57 Pravachol PO 80 mg HS ADRIENNE Administration Sodium Chloride 10 ml 02/09/19 09:00 02/11/19 12:38 Flush - Normal Saline IVF 10 ml Q12HR ADRIENNE Administration Tamsulosin HCl 0.4 mg 02/09/19 09:00 02/11/19 12:37 Flomax PO 0.4 mg DAILY ADRIENNE Administration - Exam General - other findings: Morbid obesity Eye: anicteric sclera ENT: moist mucosa Neck: supple, symmetric Heart: RRR, no gallops, no rubs Respiratory: CTAB, no wheezes, no rales Gastrointestinal: soft, non-tender Extremities: 2+ LE edema Neurological: no new deficit Psychiatric: normal affect, normal behavior Hosp A/P (1) ESRD needing dialysis Code(s): N18.6 - END STAGE RENAL DISEASE; Z99.2 - DEPENDENCE ON RENAL DIALYSIS Status: Acute (2) DM2 (diabetes mellitus, type 2) Status: Chronic (3) HTN (hypertension) Code(s): I10 - ESSENTIAL (PRIMARY) HYPERTENSION Status: Chronic (4) Morbid obesity Code(s): E66.01 - MORBID (SEVERE) OBESITY DUE TO EXCESS CALORIES Status: Chronic - Plan out of bed/ambulate Pt initiated on dialysis. Discontinue glipizide, pt had hypoglycemic episodes. Blood pressure reasonably controlled.
[2019-02-11] MEDS ORDERED: Bisacodyl 5 MG TAB PO PRN (18:03)
[2019-02-11] MEDS: Polyethylene Glycol 3350 17 GM Packet PO PRN (18:57)
[2019-02-11] MEDS: Pravastatin Sodium 40 MG TAB PO SCH (20:14)
[2019-02-12] MEDS: diphenhydrAMINE 25 MG CAP PO PRN ×2 (00:09→22:09)
[2019-02-12] MEDS: Acetaminophen/Codeine 30-300mg Tablet PO PRN (00:09)
[2019-02-12] MEDS: Aggrenox 200-25mg CAP PO SCH ×2 (07:28→20:42)
[2019-02-12] MEDS: Carvedilol 25 MG TAB PO SCH ×2 (07:28→20:42)
[2019-02-12] MEDS: Tamsulosin HCl 0.4 MG CAP PO SCH (07:28)
[2019-02-12] MEDS: Famotidine 20 MG TAB PO SCH (07:28)
[2019-02-12] MEDS: Allopurinol 100 MG TAB PO SCH (07:28)
[2019-02-12] MEDS ORDERED: Heparin 10,000 UNITS/1 ML VIAL ONE (15:00)
--- NOTE | 2019-02-12 17:03 | PRG ---
DATE OF SERVICE: 02/12/2019 SUBJECTIVE: Patient was seen and examined at bedside and overnight events noted. Patient denies any shortness of breath or chest pain or palpitation. No history of nausea or vomiting or diarrhea or fever or chills or cramps. OBJECTIVE: GENERAL: This is a well build male, in no acute distress. VITAL SIGNS: Temperature 97.9, pulse 80, respiratory rate 18, blood pressure 146/79. HEENT: Atraumatic, normocephalic. Oral mucosa is moist NECK: Supple. CARDIOVASCULAR: S1, S2 heard. Rate and rhythm regular. RESPIRATORY: Clear to auscultation. GASTROINTESTINAL: Abdomen is soft. MUSCULOSKELETAL: No tenderness. No edema. DERMATOLOGIC: No skin rash. NEUROLOGIC: Alert and awake and oriented X3. No focal neurologic deficits. Moving all the extremities. PSYCHIATRIC: Mood and affect normal. LABORATORY DATA: No labs done today. ASSESSMENT AND PLAN: 1. End-stage renal disease. Continue on dialysis as tolerated. 2. History of hypertension, getting better. 3. Edema, controlled. 4. Anemia. 5. Blood pressure is getting better. We will follow. Job ID: [id number]
[2019-02-12] MEDS: Pravastatin Sodium 40 MG TAB PO SCH (20:42)
[2019-02-12] MEDS: Polyethylene Glycol 3350 17 GM Packet PO PRN (20:42)
--- NOTE | 2019-02-12 22:51 | PDOC.HOSPP ---
- Subjective Encounter Date: 02/12/19 Encounter Time: 10:00 Subjective: Patient seen and examined for NEEL during dialysis. No N/V. No new complaints. No overnight events - Objective Vital Signs & Weight: Vital Signs (12 hours) Temp Pulse Resp BP Pulse Ox 02/12/19 20:00 97.5 F L 77 20 136/91 H 93 L Weight Weight 310 lb 13.628 oz I&O: 02/11/19 02/12/19 02/13/19 06:59 06:59 06:59 Intake Total 1210 1095 720 Balance 1210 1095 720 Result Diagrams: 02/13/19 05:16 02/13/19 05:16 Additional Labs: Accuchecks 02/12/19 02/12/19 02/12/19 20:16 15:37 05:20 POC Glucose 118 H 110 80 02/10/19 13:20 POC Glucose 103 Hospitalist ROS - Review of Systems Respiratory: denies: cough, dry, shortness of breath, hemoptysis, SOB with excertion, pleuritic pain, sputum, wheezing, other Cardiovascular: denies: chest pain, palpitations, orthopnea, paroxysmal noc. dyspnea, edema, light headedness, other - Medication Medications: Active Medications Generic Name Dose Route Start Last Admin Trade Name Freq PRN Reason Stop Dose Admin Acetaminophen/Codeine Phosphate 1 tab 02/09/19 22:05 02/12/19 00:09 Tylenol #3 PO 1 tab Q4H PRN Administration Moderate Pain (4-6) Allopurinol 200 mg 02/12/19 09:00 02/12/19 07:28 Zyloprim PO 200 mg DAILY ADRIENNE Administration Carvedilol 25 mg 02/09/19 09:00 02/12/19 20:42 Coreg PO 25 mg BID ADRIENNE Administration Diphenhydramine HCl 25 mg 02/08/19 22:40 02/12/19 22:09 Benadryl PO 25 mg Q6H PRN Administration Itching & Insomnia Dipyridamole/Aspirin 1 cap 02/09/19 09:00 02/12/19 20:42 Aggrenox PO 1 cap BID ADRIENNE Administration Famotidine 20 mg 02/10/19 09:00 02/12/19 07:28 Pepcid PO 20 mg DAILY ADRIENNE Administration Polyethylene Glycol 17 gm 02/11/19 18:34 02/12/19 20:42 Miralax PO 17 gm DAILYPRN PRN Administration Constipation Pravastatin Sodium 80 mg 02/09/19 21:00 02/12/19 20:42 Pravachol PO 80 mg HS ADRIENNE Administration Sodium Chloride 10 ml 02/09/19 09:00 02/12/19 20:42 Flush - Normal Saline IVF 10 ml Q12HR ADRIENNE Administration Tamsulosin HCl 0.4 mg 02/09/19 09:00 02/12/19 07:28 Flomax PO 0.4 mg DAILY ADRIENNE Administration - Exam General Appearance: NAD Heart: RRR, no rubs Respiratory: CTAB, no rales Gastrointestinal: soft, non-tender, normal bowel sounds Extremities: no edema Hosp A/P (1) NEEL (acute kidney injury) Code(s): N17.9 - ACUTE KIDNEY FAILURE, UNSPECIFIED Status: Acute (2) Morbid obesity with BMI of 50.0-59.9, adult Code(s): E66.01 - MORBID (SEVERE) OBESITY DUE TO EXCESS CALORIES; Z68.43 - BODY MASS INDEX (BMI) 50-59.9, ADULT Status: Acute (3) DM2 (diabetes mellitus, type 2) Status: Chronic (4) HTN (hypertension) Code(s): I10 - ESSENTIAL (PRIMARY) HYPERTENSION Status: Chronic (5) CKD (chronic kidney disease) stage 5, GFR less than 15 ml/min Code(s): N18.5 - CHRONIC KIDNEY DISEASE, STAGE 5 Status: Acute (6) Hypokalemia Code(s): E87.6 - HYPOKALEMIA Status: Acute - Plan Cont dialysis as tolerated Outpt dialysis pending Cont Coreg/Statins and other meds as above Cont slidind scale
[2019-02-13 05:52] LABS: Anion Gap 11 mmol/L (10-20); BUN (Urea Nitrogen) 29 mg/dL (8.4-25.7); Calc. Creatinine Clearance 29 mL/min (70-130); Calcium 8.3 mg/dL (7.8-10.44); Carbon Dioxide 26 mmol/L (23-31); Chloride 104 mmol/L (98-107); Estimated GFR-MDRD 13; Glucose 84 mg/dL (80-115); Potassium 3.4 mmol/L (3.5-5.1); Sodium 138 mmol/L (136-145)
[2019-02-13 06:03] LABS: Band 1 % (5-11); Eosinophils 3 % (0-10); Hemoglobin 9.7 g/dL (14.0-18.0); Lymphocytes 39 % (21-51); MDiff Complete? YES; Mean Corpuscular HGB CONC 32.9 g/dL (32.0-36.0); Mean Corpuscular Hemoglobin 30.1 pg (27.0-31.0); Mean Corpuscular Volume 91.5 fL (78.0-98.0); Mean Platelet Volume 7.7 fL (7.4-10.4); Monocytes 10 % (0-10); Neutrophil 47 % (42-75); Platelet Count 232 thou/uL (130-400); White Blood Cell (WBC) Count 2.9 thou/uL (4.8-10.8)
[2019-02-13] MEDS: Aggrenox 200-25mg CAP PO SCH ×2 (08:00→20:21)
[2019-02-13] MEDS: Allopurinol 100 MG TAB PO SCH (08:00)
[2019-02-13] MEDS: Carvedilol 25 MG TAB PO SCH ×2 (08:01→20:21)
[2019-02-13] MEDS: Tamsulosin HCl 0.4 MG CAP PO SCH (08:01)
[2019-02-13] MEDS: Famotidine 20 MG TAB PO SCH (08:01)
[2019-02-13] MEDS ORDERED: hydrALAZINE 25 MG TAB PO SCH (09:00)
--- NOTE | 2019-02-13 18:15 | PRG ---
DATE OF SERVICE: 02/13/2019 SUBJECTIVE: Patient was seen and examined at bedside and overnight events noted. Patient denies any shortness of breath or chest pain or palpitation. No history of nausea or vomiting or diarrhea or fever or chills or cramps. OBJECTIVE: GENERAL: This is an obese male, in no apparent distress. VITAL SIGNS: Temperature 97.8. Heart rate 90. Respiratory rate 18. Blood pressure 136/96. HEENT: Atraumatic, normocephalic. Oral mucosa is moist. NECK: Supple. CARDIOVASCULAR: S1, S2 heard. Rate and rhythm regular. RESPIRATORY: Clear to auscultation. GASTROINTESTINAL: Abdomen is soft. MUSCULOSKELETAL: No tenderness. No edema. DERMATOLOGIC: No skin rash. NEUROLOGIC: Alert and awake and oriented x3. No focal neurologic deficits. Moving all the extremities. PSYCHIATRIC: Mood and affect normal. LABORATORY DATA: Potassium 3.4, BUN is 29, and creatinine is 5.3. ASSESSMENT AND PLAN: 1. End-stage renal disease. Continue on dialysis as tolerated. Follow with Case Management for outpatient placement. 2. History of hypertension. 3. Edema, controlled. 4. Anemia. Continue on dialysis as tolerated. Job ID: [id number]
[2019-02-13] MEDS: Pravastatin Sodium 40 MG TAB PO SCH (20:21)
--- NOTE | 2019-02-13 20:22 | PDOC.HOSPP ---
- Subjective Encounter Date: 02/13/19 Encounter Time: 17:45 Subjective: Patient seen and examined for ESRD. No N/V/SOB. No new complaints. No overnight events - Objective Vital Signs & Weight: Vital Signs (12 hours) Temp Pulse Resp BP Pulse Ox 02/13/19 20:00 98.0 F 77 20 164/99 H 94 L Weight Weight 310 lb 13.628 oz I&O: 02/12/19 02/13/19 02/14/19 06:59 06:59 06:59 Intake Total 1095 1330 720 Balance 1095 1330 720 Result Diagrams: 02/13/19 05:16 02/13/19 05:16 Additional Labs: Accuchecks 02/13/19 02/13/19 02/13/19 16:03 12:17 05:18 POC Glucose 109 118 H 88 02/12/19 20:16 POC Glucose 118 H Hospitalist ROS - Review of Systems Respiratory: denies: cough, dry, shortness of breath, hemoptysis, SOB with excertion, pleuritic pain, sputum, wheezing, other Cardiovascular: denies: chest pain, palpitations, orthopnea, paroxysmal noc. dyspnea, edema, light headedness, other Gastrointestinal: reports: constipation. denies: nausea, vomiting, abdominal pain, diarrhea, melena, hematochezia, other - Medication Medications: Active Medications Generic Name Dose Route Start Last Admin Trade Name Freq PRN Reason Stop Dose Admin Acetaminophen/Codeine Phosphate 1 tab 02/09/19 22:05 02/12/19 00:09 Tylenol #3 PO 1 tab Q4H PRN Administration Moderate Pain (4-6) Allopurinol 200 mg 02/12/19 09:00 02/13/19 08:00 Zyloprim PO 200 mg DAILY ADRIENNE Administration Carvedilol 25 mg 02/09/19 09:00 02/13/19 08:01 Coreg PO 25 mg BID ADRIENNE Administration Diphenhydramine HCl 25 mg 02/08/19 22:40 02/12/19 22:09 Benadryl PO 25 mg Q6H PRN Administration Itching & Insomnia Dipyridamole/Aspirin 1 cap 02/09/19 09:00 02/13/19 08:00 Aggrenox PO 1 cap BID ADRIENNE Administration Famotidine 20 mg 02/10/19 09:00 02/13/19 08:01 Pepcid PO 20 mg DAILY ADRIENNE Administration Polyethylene Glycol 17 gm 02/11/19 18:34 02/12/19 20:42 Miralax PO 17 gm DAILYPRN PRN Administration Constipation Pravastatin Sodium 80 mg 02/09/19 21:00 02/12/19 20:42 Pravachol PO 80 mg HS ADIRENNE Administration Sodium Chloride 10 ml 02/09/19 09:00 02/13/19 08:01 Flush - Normal Saline IVF 10 ml Q12HR ADRIENNE Administration Tamsulosin HCl 0.4 mg 02/09/19 09:00 02/13/19 08:01 Flomax PO 0.4 mg DAILY ADRIENNE Administration - Exam General Appearance: NAD Neck: supple Heart: RRR, no rubs Respiratory: CTAB, no rales Gastrointestinal: soft, non-tender, normal bowel sounds Extremities: 2+ LE edema Hosp A/P (1) NEEL (acute kidney injury) Code(s): N17.9 - ACUTE KIDNEY FAILURE, UNSPECIFIED Status: Acute (2) Morbid obesity with BMI of 50.0-59.9, adult Code(s): E66.01 - MORBID (SEVERE) OBESITY DUE TO EXCESS CALORIES; Z68.43 - BODY MASS INDEX (BMI) 50-59.9, ADULT Status: Chronic (3) DM2 (diabetes mellitus, type 2) Status: Chronic Qualifiers: Chronic kidney disease stage: stage 5, not on chronic dialysis (4) HTN (hypertension) Code(s): I10 - ESSENTIAL (PRIMARY) HYPERTENSION Status: Chronic (5) Hypokalemia Code(s): E87.6 - HYPOKALEMIA Status: Acute (6) BPH (benign prostatic hyperplasia) Code(s): N40.0 - BENIGN PROSTATIC HYPERPLASIA WITHOUT LOWER URINRY TRACT SYMP Status: Chronic (7) Constipation Code(s): K59.00 - CONSTIPATION, UNSPECIFIED Status: Acute - Plan Dialysis fistula in AM Cont dialysis per Nephrology Outpt dialysis setup pending Cont Coreg Cont Statins Cont Flomax Cont other meds as above Cont sliding scale Treat constipation
[2019-02-13] MEDS: Senokot S 8.6-50 MG TAB PO SCH (20:39)
[2019-02-13] MEDS ORDERED: Polyethylene Glycol 3350 17 GM Packet PO SCH (21:00)
[2019-02-14] MEDS: diphenhydrAMINE 25 MG CAP PO PRN ×2 (00:07→20:18)
[2019-02-14] MEDS: Carvedilol 25 MG TAB PO SCH ×2 (06:12→20:18)
[2019-02-14] MEDS ORDERED: Propofol 1,000 MG/100 ML VIAL IV ONE (06:32)
[2019-02-14] MEDS ORDERED: Fentanyl 100 MCG/2 ML VIAL ONE ×3 (06:32→08:37)
[2019-02-14] MEDS ORDERED: Lidocaine 1% (PF) 30 ML VIAL ONE (06:36)
[2019-02-14] MEDS ORDERED: Heparin 5,000 UNITS/ML VIAL ONE (06:38)
[2019-02-14] MEDS ORDERED: Protamine Sulfate 50 MG/5 ML VIAL ONE (06:38)
[2019-02-14] MEDS ORDERED: Bupivacaine/Epinephrine 0.25% 30 ML VIAL ONE (06:38)
[2019-02-14] MEDS ORDERED: Lidocaine 2% PF 5 ML VIAL ONE (06:38)
[2019-02-14] MEDS ORDERED: Midazolam HCl 2 mg/2 ml Vial ONE ×2 (07:20→08:37)
[2019-02-14] MEDS: Famotidine 20 MG TAB PO SCH (09:32)
[2019-02-14] MEDS: Aggrenox 200-25mg CAP PO SCH ×2 (09:32→20:18)
[2019-02-14] MEDS: Allopurinol 100 MG TAB PO SCH (09:32)
[2019-02-14] MEDS: Senokot S 8.6-50 MG TAB PO SCH (09:32)
[2019-02-14] MEDS ORDERED: Ondansetron HCl/PF 4 MG/2 ML Vial IVP PRN (10:28)
[2019-02-14] MEDS ORDERED: Promethazine HCl 25 MG/ML VIAL SLOW IVP PRN (10:28)
[2019-02-14] MEDS ORDERED: Promethazine HCl 25 MG/ML VIAL IM PRN (10:28)
[2019-02-14] MEDS: Tamsulosin HCl 0.4 MG CAP PO SCH (10:29)
[2019-02-14] MEDS ORDERED: hydrALAZINE 20 MG/ML VIAL ONE (10:43)
--- NOTE | 2019-02-14 12:17 | PDOC.OP ---
Operative Note - Operative Note Operative Note: DATE OF PROCEDURE: 02/14/2019 PROCEDURE: Left upper arm brachiocephalic AV fistula SURGEON: Osmar Gleason M.D. PREOPERATIVE DIAGNOSIS: End-stage renal failure. POSTOPERATIVE DIAGNOSIS: End-stage renal failure. HISTORY: Patient with end-stage renal failure who requires permanent access for ongoing hemodialysis. After reviewing vein mapping the decision was made to proceed with a primary fistula on the left side. His veins are preferable on the right, but he is right-handed. PROCEDURE: After informed consent was obtained and appropriate preoperative antibiotics administered, the patient was taken to the operating room and was placed in supine position and anesthesia was administered. A preoperative block had been administered and adequacy of block was confirmed. The forearm cephalic vein was explored but was found to be inadequate for fistula placement. Attention was then turned to the upper arm. The palpable antecubital vein was marked on the skin as was the palpable brachial pulse. An incision was made between these 2 structures and dissection carried down to the antecubital vein complex. There was a large perforating branch proceeding down towards the radial artery which was dissected free circumferentially, but this was not long enough to reach to the brachial artery so the forearm cephalic vein was dissected out distally for a length adequate to reach without tension to the brachial artery.. This was felt to be of adequate caliber and quality to support an AV fistula. The vein was interrogated with cardiac dilators and easily accepted up to a 3.5 mm dilator. The vein was flushed with heparinized saline and clamped. The patient was found to have primary cephalic outflow, with no branch identified leading to the basilic. The brachial artery was identified and dissected free and found to be of adequate caliber and quality to support a fistula. Heparin was administered systemically and allowed to circulate for 3 minutes. After the heparin had circulated for 3 minutes, the brachial artery was clamped proximally and distally. An anterior arteriotomy was created with an 11 blade and extended with Dunn scissors. The vein was spatulated and an end-to-side anastomosis was created with excellent technical result. Prior to tying down the anastomosis, the arterial inflow was released flushing the anastomosis. The anastomosis was then secured and hemostasis was verified. Flow was established first through the fistula following which flow was restored through the artery. The patient had a palpable thrill in the cephalic outflow as well as a good Doppler signal in the same distribution. The wound was irrigated and examined and hemostasis was again confirmed to be excellent. Avitene was placed into the wound as a precaution. The subcutaneous tissues were reapproximated with a running 3-0 Monocryl sutures and the skin was closed with running 4-0 subcuticular Monocryl suture. The wrist incision was closed in a like manner. Dermabond dressings were placed. Once the Dermabond was dry and a stressing was placed. The patient was then taken to recovery in good condition. Estimated blood loss was minimal. There were no complications. There were no specimens.
--- NOTE | 2019-02-14 14:13 | PRG ---
DATE OF SERVICE: 02/14/2019 SUBJECTIVE: Patient was seen and examined at bedside and overnight events noted. Patient denies any shortness of breath or chest pain or palpitation. No history of nausea or vomiting or diarrhea or fever or chills or cramps. OBJECTIVE: GENERAL: This is a well-built male, in no apparent distress. VITAL SIGNS: Temperature 98.2. Heart rate 67. Respiratory rate 20. Blood pressure 161/88. HEENT: Atraumatic, normocephalic. Oral mucosa is moist NECK: Supple. CARDIOVASCULAR: S1, S2 heard. Rate and rhythm regular. RESPIRATORY: Clear to auscultation. GASTROINTESTINAL: Abdomen is soft. MUSCULOSKELETAL: No tenderness. No edema. DERMATOLOGIC: No skin rash. NEUROLOGIC: Alert and awake and oriented X3. No focal neurologic deficits. Moving all the extremities. PSYCHIATRIC: Mood and affect normal. LABORATORY DATA: Not done today. ASSESSMENT AND PLAN: 1. End-stage renal disease. Continue on dialysis as tolerated. 2. History of hypertension. 3. Edema. 4. Anemia of chronic disease. Continue on dialysis as tolerated. Job ID: [id number]
--- NOTE | 2019-02-14 15:33 | PDOC.HOSPP ---
- Subjective Encounter Date: 02/14/19 Encounter Time: 12:30 Subjective: Patient seen and examined for NEEL. s/p LUE fistula. Undergoing dialysis. No new complaints. No overnight events - Objective Vital Signs & Weight: Vital Signs (12 hours) Temp Pulse Resp BP Pulse Ox 02/14/19 07:50 95 02/14/19 05:32 98.2 F 61 20 161/88 H 95 Weight Weight 290 lb 7 oz I&O: 02/13/19 02/14/19 02/15/19 06:59 06:59 06:59 Intake Total 1330 720 Balance 1330 720 Result Diagrams: 02/13/19 05:16 02/13/19 05:16 Additional Labs: Accuchecks 02/14/19 02/14/19 02/13/19 11:49 05:34 20:14 POC Glucose 86 95 113 H 02/13/19 16:03 POC Glucose 109 Hospitalist ROS - Review of Systems Respiratory: denies: cough, dry, shortness of breath, hemoptysis, SOB with excertion, pleuritic pain, sputum, wheezing, other Cardiovascular: denies: chest pain, palpitations, orthopnea, paroxysmal noc. dyspnea, edema, light headedness, other Gastrointestinal: denies: nausea, vomiting, abdominal pain, diarrhea, constipation, melena, hematochezia, other - Medication Medications: Active Medications Generic Name Dose Route Start Last Admin Trade Name Freq PRN Reason Stop Dose Admin Acetaminophen/Codeine Phosphate 1 tab 02/09/19 22:05 02/12/19 00:09 Tylenol #3 PO 1 tab Q4H PRN Administration Moderate Pain (4-6) Allopurinol 200 mg 02/12/19 09:00 02/14/19 09:32 Zyloprim PO Not Given DAILY ADRIENNE Carvedilol 25 mg 02/09/19 09:00 02/14/19 06:12 Coreg PO 25 mg BID ADRIENNE Administration Diphenhydramine HCl 25 mg 02/08/19 22:40 02/14/19 00:07 Benadryl PO 25 mg Q6H PRN Administration Itching & Insomnia Dipyridamole/Aspirin 1 cap 02/09/19 09:00 02/14/19 09:32 Aggrenox PO Not Given BID ADRIENNE Famotidine 20 mg 02/10/19 09:00 02/14/19 09:32 Pepcid PO Not Given DAILY ADRIENNE Polyethylene Glycol 17 gm 02/11/19 18:34 02/12/19 20:42 Miralax PO 17 gm DAILYPRN PRN Administration Constipation Polyethylene Glycol 17 gm 02/13/19 21:00 02/13/19 20:39 Miralax PO 17 gm HS ADRIENNE Administration Pravastatin Sodium 80 mg 02/09/19 21:00 02/13/19 20:21 Pravachol PO 80 mg HS ADRIENNE Administration Senna/Docusate Sodium 2 tab 02/13/19 21:00 02/14/19 09:32 Senokot S PO Not Given BID ADRIENNE Sodium Chloride 10 ml 02/09/19 09:00 02/14/19 10:29 Flush - Normal Saline IVF Not Given Q12HR ADRIENNE Tamsulosin HCl 0.4 mg 02/09/19 09:00 02/14/19 10:29 Flomax PO Not Given DAILY ADRIENNE - Exam General Appearance: NAD Neck: supple, no JVD Heart: RRR, no rubs Respiratory: CTAB, no wheezes, no ronchi Gastrointestinal: soft, non-distended, normal bowel sounds Hosp A/P (1) NEEL (acute kidney injury) Code(s): N17.9 - ACUTE KIDNEY FAILURE, UNSPECIFIED Status: Acute (2) DM2 (diabetes mellitus, type 2) Status: Chronic Qualifiers: Chronic kidney disease stage: stage 5, not on chronic dialysis (3) Morbid obesity with BMI of 50.0-59.9, adult Code(s): E66.01 - MORBID (SEVERE) OBESITY DUE TO EXCESS CALORIES; Z68.43 - BODY MASS INDEX (BMI) 50-59.9, ADULT Status: Chronic (4) HTN (hypertension) Code(s): I10 - ESSENTIAL (PRIMARY) HYPERTENSION Status: Chronic (5) Hypokalemia Code(s): E87.6 - HYPOKALEMIA Status: Acute (6) BPH (benign prostatic hyperplasia) Code(s): N40.0 - BENIGN PROSTATIC HYPERPLASIA WITHOUT LOWER URINRY TRACT SYMP Status: Chronic (7) Constipation Code(s): K59.00 - CONSTIPATION, UNSPECIFIED Status: Chronic (8) RAFAEL (obstructive sleep apnea) Code(s): G47.33 - OBSTRUCTIVE SLEEP APNEA (ADULT) (PEDIATRIC) Status: Acute - Plan s/p Dialysis fistula Cont dialysis MWF Outpt dialysis setup Cont Coreg/Statins/Flomax Cont sliding scale Cont other meds as above
[2019-02-14] MEDS: Pravastatin Sodium 40 MG TAB PO SCH (20:18)
[2019-02-14] MEDS: Acetaminophen/Codeine 30-300mg Tablet PO PRN (22:38)
[2019-02-15] MEDS: Acetaminophen/Codeine 30-300mg Tablet PO PRN ×2 (08:03→12:53)
[2019-02-15] MEDS: Allopurinol 100 MG TAB PO SCH (08:05)
[2019-02-15] MEDS: Tamsulosin HCl 0.4 MG CAP PO SCH (08:05)
[2019-02-15] MEDS: Aggrenox 200-25mg CAP PO SCH (08:05)
[2019-02-15] MEDS: Famotidine 20 MG TAB PO SCH (08:05)
[2019-02-15] MEDS: Carvedilol 25 MG TAB PO SCH (08:09)
--- NOTE | 2019-02-15 11:34 | DIS ---
DATE OF ADMISSION: 02/08/2019 DATE OF DISCHARGE: 02/15/2019 DISCHARGE DISPOSITION: Home. FOLLOWUP: 1. Follow up with primary care physician, Dr. Dominic Romero, in 1 week. 2. Follow up with Nephrology, Dr. Martinez. 3. General Surgery, Dr. Gleason, in 1 to 2 weeks. ALLERGIES: THE PATIENT IS ALLERGIC TO [employer]. DISCHARGE MEDICATIONS: 1. Allopurinol dose was reduced to 100 mg daily. 2. Aggrenox b.i.d. 3. Carvedilol 25 mg b.i.d. 4. Pepcid 20 mg b.i.d. 5. Glipizide 2.5 mg b.i.d. 6. Hydralazine as directed. 7. Pravastatin 80 mg at bedtime. 8. Flomax 0.4 mg daily. The patient was seen and examined on the day of discharge. Denies any new complaints. No chest pain, shortness of breath, or palpitations reported. LABORATORY DATA: Significant labs; hemoglobin at discharge was 9.7. Creatinine was 5.32 with BUN 29 and potassium 3.4. IMAGING STUDIES: Chest x-ray was negative for infiltrate. INPATIENT PROCEDURES: On February 09, 2019, the patient underwent hemodialysis catheter. On February 14, he underwent left upper arm brachiocephalic AV fistula. BRIEF HOSPITAL COURSE: The patient is a 59-year-old male with CKD, presented to the hospital with shortness of breath and worsening lower extremity swelling. His workup was consistent with acute kidney injury on chronic kidney disease, stage 5. He did not improve with IV diuretics. Subsequently, he was started on hemodialysis. He tolerated hemodialysis well. His weight on admission was 310 and at discharge is 290 pounds. Allopurinol dose was reduced to 100 mg per Nephrology recommendation. Procardia XL has been discontinued. All other home medications were left unchanged. He has been cleared by Nephrology for discharge. FINAL DIAGNOSES: 1. Acute kidney injury on chronic kidney disease, stage 5. 2. Hypertension. 3. Diabetes mellitus, type 2. 4. Hypokalemia. 5. Benign prostatic hypertrophy. 6. Obstructive sleep apnea. 7. Hypokalemia. 8. Obesity with a BMI of 48.3. 9. Chronic anemia of renal insufficiency. 10. Metabolic acidosis due to renal failure. Sodium bicarbonate has been discontinued. 11. Leukopenia. 12. History of cerebrovascular accident, on Aggrenox. 13. Coronary artery disease. PLAN: Plan of care was discussed with the patient in detail. He stated understanding. The patient was extensively counseled on medication compliance as well as renal diet. Job ID: [id number]
[2019-02-15 12:00] VITALS: BP 139/91; TEMP 98.7
--- NOTE | 2019-02-15 19:31 | PRG ---
DATE OF SERVICE: 02/15/2019 SUBJECTIVE: Patient was seen and examined at bedside and overnight events noted. Patient denies any shortness of breath or chest pain or palpitation. No history of nausea or vomiting or diarrhea or fever or chills or cramps. OBJECTIVE: GENERAL: This is an obese male, in no apparent distress. VITAL SIGNS: Temperature 98. Pulse 80. Respiratory rate 16. Blood pressure 131/80. HEENT: Atraumatic, normocephalic. Oral mucosa is moist NECK: Supple. CARDIOVASCULAR: S1, S2 heard. Rate and rhythm regular. RESPIRATORY: Clear to auscultation. GASTROINTESTINAL: Abdomen is soft. MUSCULOSKELETAL: No tenderness. No edema. DERMATOLOGIC: No skin rash. NEUROLOGIC: Alert and awake and oriented X3. No focal neurologic deficits. Moving all the extremities. PSYCHIATRIC: Mood and affect normal. LABORATORY DATA: Not done today. ASSESSMENT AND PLAN: 1. End-stage renal disease. Continue on dialysis as tolerated. 2. History of hypertension. 3. Edema. 4. Anemia. Continue on dialysis as tolerated. Job ID: [id number]
[2019-02-17 13:09] LABS: HBV as IU/mL HBV DNA not detected IU/mL (.)
== END 2019-02-15 13:59 | disposition home or self-care (01) | DRG 674 ==
LOC: ERS 18:21 → T4-B 20:28
PROVIDERS: ADMIT Internal Medicine; ATTEND Internal Medicine
PROC: 0JH60XZ Insertion of Tunneled Vascular Access Device into Chest Subcutaneous Tissue and Fascia, Open Approach (ICD-10-PCS; principal; 2019-02-09)
PROC: 02HV33Z Insertion of Infusion Device into Superior Vena Cava, Percutaneous Approach (ICD-10-PCS; 2019-02-09)
PROC: B5181ZA Fluoroscopy of Superior Vena Cava using Low Osmolar Contrast, Guidance (ICD-10-PCS; 2019-02-09)
PROC: 5A1D70Z Performance of Urinary Filtration, Intermittent, Less than 6 Hours Per Day (ICD-10-PCS; 2019-02-11)
PROC: 03180ZD Bypass Left Brachial Artery to Upper Arm Vein, Open Approach (ICD-10-PCS; 2019-02-14)
DX: N17.9 Acute kidney failure, unspecified (principal); I13.2 Hypertensive heart and chronic kidney disease with heart failure and with stage 5 chronic kidney disease, or end stage renal disease; Z68.42 Body mass index [BMI] 45.0-49.9, adult; E87.2 Acidosis; N18.6 End stage renal disease; E11.22 Type 2 diabetes mellitus with diabetic chronic kidney disease; G47.00 Insomnia, unspecified; Z86.73 Personal history of transient ischemic attack (TIA), and cerebral infarction without residual deficits; Z90.49 Acquired absence of other specified parts of digestive tract; Z79.899 Other long term (current) drug therapy; Z87.891 Personal history of nicotine dependence; E78.5 Hyperlipidemia, unspecified; D63.8 Anemia in other chronic diseases classified elsewhere; E66.01 Morbid (severe) obesity due to excess calories; N40.0 Benign prostatic hyperplasia without lower urinary tract symptoms; Z88.8 Allergy status to other drugs, medicaments and biological substances; D72.819 Decreased white blood cell count, unspecified; I25.10 Atherosclerotic heart disease of native coronary artery without angina pectoris; E87.6 Hypokalemia; K59.00 Constipation, unspecified
CPT/HCPCS: 36415; 36416; 71045; 80048; 85025; 86704; 86705; 86706; 86803; 87340; 87517; 90935; 93005; 93970; 94660; 94760; C1752; G0257; G0365; J0360; J0690; J1644; J1940; J2001; J2250; J2405; J2704; J2720; J3010; Q0163; S0028

== ENCOUNTER 2019-07-13 14:06 | Day surgery (SDC) | payer MEDICARE ==
[~2019-07-13 14:06] MED LIST: PROPOFOL 200 MG/20 ML VIAL ONE
[2019-07-13 16:27] LABS: Hemoglobin 11.7 g/dL (14.0-18.0); Mean Corpuscular HGB CONC 32.1 g/dL (32.0-36.0); Mean Corpuscular Hemoglobin 27.9 pg (27.0-31.0); Mean Platelet Volume 7.9 fL (7.4-10.4); Platelet Count 204 thou/uL (130-400); RBC Distribution Width 13.8 % (11.5-14.5); White Blood Cell (WBC) Count 3.1 thou/uL (4.8-10.8)
[2019-07-13 16:42] LABS: Anion Gap 14 mmol/L (10-20); BUN (Urea Nitrogen) 24 mg/dL (8.4-25.7); Calc. Creatinine Clearance 0 mL/min (70-130); Calcium 9.3 mg/dL (7.8-10.44); Carbon Dioxide 25 mmol/L (23-31); Chloride 103 mmol/L (98-107); Estimated GFR-MDRD 12; Glucose 80 mg/dL (80-115); Potassium 4.3 mmol/L (3.5-5.1); Sodium 138 mmol/L (136-145)
[2019-07-13] MEDS ORDERED: Fentanyl 100 MCG/2 ML VIAL ONE ×2 (16:47→17:01)
[2019-07-13] MEDS ORDERED: Lidocaine 2% PF 5 ML VIAL ONE (17:00)
[2019-07-13] MEDS ORDERED: Bupivacaine 0.25% HCL 30 ML VIAL ONE (17:00)
[2019-07-13] MEDS ORDERED: Heparin 10,000 UNITS/1 ML VIAL ONE (17:00)
[2019-07-13] MEDS ORDERED: Sodium Chloride 0.9% 30 ML ONE (17:00)
[2019-07-13] MEDS ORDERED: EPINEPHrine 1 MG/ML AMP ONE (17:00)
[2019-07-13] MEDS ORDERED: Midazolam HCl 2 mg/2 ml Vial ONE (17:01)
--- NOTE | 2019-07-13 17:18 | PDOC.OP ---
Operative Note - Operative Note Operative Note: PROCEDURE: Replacement of tunneled hemodialysis catheter with fluoroscopic guidance SURGEON: Osmar Gleason M.D. DATE: 07/13/2019 PREOPERATIVE DIAGNOSIS: Malfunction of tunneled hemodialysis catheter POSTOPERATIVE DIAGNOSIS: Malfunction of tunneled hemodialysis catheter HISTORY: Patient with right internal jugular tunneled hemodialysis catheter. The dialysis nurses noted today that the external cuff is starting to extrude through the skin. PROCEDURE IN DETAIL: After informed consent was obtained and appropriate preoperative antibiotics were administered, the patient was taken to the operating room and was placed in the supine position and total IV sedation was administered. The neck and chest were prepped and draped in the standard sterile fashion including the old hemodialysis catheter within the sterile prep. After draping, the external portion of the existing catheter was excluded from the field with a Tegaderm. Local anesthesia was infused to the skin and subcutaneous tissues of the right neck and chest. The previous IJ access site was reopened and the catheter dissected free circumferentially, but left in place as it was currently being used by Anesthesia for IV sedation. An infraclavicular incision was made and a new catheter tunneled up from this site to the right IJ access site. The existing right IJ hemodialysis catheter was then clamped and cut. The patient was placed in Trendelenburg and a wire placed through the internal portion of the old catheter following which that portion was removed and discarded. The wire was confirmed by fluoroscopy to be within the superior vena cava. The tract was sequentially dilated and the dilator and sheath placed over the wire and the wire and dilator removed leaving the sheath in place. The new catheter was tunneled through the sheath which was split and removed leaving the old catheter in place. The hub was sutured to the skin. The course of the catheter was confirmed by fluoroscopy to be smooth with the tip in the superior vena cava. Both ports easily aspirated dark nonpulsatile blood and easily flushed without resistance. Heparin was instilled into 1 port to the quantity specified on the hub. This was clamped and capped. Saline flush was instilled into the other port which was clamped and a Leur-lock catheter placed. The end of the catheter was then passed off the field to Anesthesia for use for IV sedation. The right IJ access site was closed in 2 layers with 4-0 Monocryl suture and Dermabond dressings were applied. The skin at the exit site was snugged up around the catheter with a 4-0 Monocryl suture and Dermabond placed at that site as well. A Biopatch and Tegaderm dressing was placed. Attention was then turned to removal of the old catheter. Local anesthesia was infused to the skin and subcutaneous tissues surrounding the old cuff and the cuff was dissected free of the surrounding subcutaneous tissue. The external portion of the old catheter was then removed and a sterile gauze and Tegaderm dressing placed at that site. The patient was taken to recovery in good condition. Estimated blood loss was minimal. There were no complications. There were no specimens.
[2019-07-13 17:25] LABS: Band 8 % (5-11); Eosinophils 10 % (0-10); Lymphocytes 15 % (21-51); MDiff Complete? YES; Monocytes 15 % (0-10); Neutrophil 40 % (42-75); Platelet Morphology Comment Appears Adequate; Polychromasia SLIGHT = 2-3 cells (100X) (0-2/hpf); Reactive Lymphocytes 12 % (0-10)
--- NOTE | 2019-07-13 17:50 | HP ---
CHIEF COMPLAINT: Extruding HD catheter. HISTORY OF PRESENT ILLNESS: Mr. Ozuna is a 59-year-old man with end-stage renal failure. He has a left upper arm AV fistula, which has an excellent thrill. I had given the dialysis clinic permission to start accessing this last month, but according to the patient, they only accessed it once and it clotted in the tubing, so they have not accessed it since. They have been using his catheter for access instead, but today they noticed that the cuff was starting to extrude to the skin, so he was sent here for replacement of his dialysis catheter. He is tolerating dialysis well and is not having any problems with his left arm. He is doing his hand exercises as instructed. PAST MEDICAL HISTORY: Diabetes, hypertension, end-stage renal failure, heart failure, and benign prostatic hypertrophy. OUTPATIENT MEDICATIONS: Include carvedilol, Aggrenox, and Flomax. He has an adverse drug reaction to JIMMY inhibitors, which cause his neck to swell. FAMILY HISTORY: Renal failure. REVIEW OF SYSTEMS: Ten-system review of systems is negative except per HPI. No bleeding from the catheter site. No fevers or chills. No pain, numbness, or tingling in his left hand. PHYSICAL EXAMINATION: GENERAL: Reveals a healthy-appearing man, in no acute distress. He is not flushed or toxic in appearance. He is not jaundiced or icteric. HEENT: Unremarkable without lymphadenopathy or thyroid nodules. HEART: Regular in its rate and rhythm without murmurs, rubs, or gallops. LUNGS: Clear to auscultation bilaterally. ABDOMEN: Soft, nontender, nondistended. EXTREMITIES: Warm and well perfused. He has an excellent thrill, and his left upper arm AV fistula is easily palpable and well dilated. The HD catheter exit site has a small amount of the subcutaneous cuff showing, but appears to still be incorporated. ASSESSMENT: Extruding cuff of HD catheter. Unfortunately, the Dialysis Clinic has not been accessing his AV fistula as instructed, so this will need to be replaced. This should be able to be changed over a wire and brought out at a separate site. I have told the patient to remind the dialysis nurses that they are supposed to be trying to access his fistula. If they have difficulties, then we will get a fistulogram to make sure that it looks okay. He does have a bit of a larger arm, and if they are having difficulty accessing it, then transposition to more superficial site may be necessary, but on physical examination, it should be easily accessible. Job ID: [id number]
--- NOTE | 2019-07-13 19:00 | RAD ---
Exam: Chest one view HISTORY:Status post HemoSplit dialysis catheter placement. Evaluate for pneumothorax Comparison: 02/09/2019 FINDINGS: Cardiac silhouette:Cardiomegaly Aorta: Elongation of the aorta. Pulmonary vessels: Normal Costophrenic angles: Clear LUNGS: No masses or consolidation. Lines and tubes: Right-sided HemoSplit dialysis catheter terminates in the expected region of the sup erior vena cava. Pneumothorax: None Osseous abnormalities: None IMPRESSION: 1. Right-sided HemoSplit dialysis catheter as above. No pneumothorax.
== END 2019-07-13 19:25 | disposition home or self-care (01) ==
LOC: SDC 14:06
PROVIDERS: ATTEND Surgery
PROC: 0J2VXYZ Change Other Device in Upper Extremity Subcutaneous Tissue and Fascia, External Approach (ICD-10-PCS; principal; 2019-07-13)
DX: T82.49XA Other complication of vascular dialysis catheter, initial encounter (principal); I13.2 Hypertensive heart and chronic kidney disease with heart failure and with stage 5 chronic kidney disease, or end stage renal disease; N18.6 End stage renal disease; E11.22 Type 2 diabetes mellitus with diabetic chronic kidney disease; I50.9 Heart failure, unspecified; E66.9 Obesity, unspecified; Z68.42 Body mass index [BMI] 45.0-49.9, adult; Z79.899 Other long term (current) drug therapy; Z88.8 Allergy status to other drugs, medicaments and biological substances
CPT/HCPCS: 36581; 71045; 80048; 85025; C1752; C1769; J0171; J0690; J1644; J2001; J2250; J2704; J3010; S0020

== ENCOUNTER 2019-12-04 10:00 | Outpatient (CLI) | payer MEDICARE, OTHER ==
[2019-12-04 14:34] LABS: Anion Gap 18 mmol/L (10-20); BUN (Urea Nitrogen) 50 mg/dL (8.4-25.7); Calc. Creatinine Clearance 0 mL/min (70-130); Calcium 9.8 mg/dL (7.8-10.44); Carbon Dioxide 26 mmol/L (23-31); Chloride 99 mmol/L (98-107); Estimated GFR-MDRD 6; Glucose 83 mg/dL (80-115); Potassium 5.8 mmol/L (3.5-5.1); Sodium 137 mmol/L (136-145)
[2019-12-04 14:57] LABS: Band 14 % (5-11); Eosinophils 5 % (0-10); Hemoglobin 13.3 g/dL (14.0-18.0); Hypochromia SLIGHT = 6-15 cells (100X) (0-5/hpf); Lymphocytes 21 % (21-51); MDiff Complete? YES; Mean Corpuscular Hemoglobin 28.1 pg (27.0-31.0); Mean Corpuscular Volume 90.7 fL (78.0-98.0); Mean Platelet Volume 8.4 fL (7.4-10.4); Monocytes 16 % (0-10); Neutrophil 43 % (42-75); Platelet Count 263 thou/uL (130-400); Platelet Morphology Comment Appears Adequate; Polychromasia SLIGHT = 2-3 cells (100X) (0-2/hpf); Red Blood Cell (RBC) Count 4.73 mill/uL (4.70-6.10); Target Cells SLIGHT = 2-5 cells (100X) (0-1/hpf); White Blood Cell (WBC) Count 4.2 thou/uL (4.8-10.8)
[2019-12-05 12:47] LABS: SARS-CoV-2 MS2 Positive; SARS-CoV-2 N Gene Negative; SARS-CoV-2 S Gene Negative; SARS-CoV-2 orf1ab Negative
== END 2019-12-04 10:01 | disposition home or self-care (01) ==
LOC: LABBT 10:00
PROVIDERS: ATTEND Surgery
DX: Z01.812 Encounter for preprocedural laboratory examination (principal); Z11.59 Encounter for screening for other viral diseases; N18.6 End stage renal disease
CPT/HCPCS: 80048; 85025; U0003; 87635

== ENCOUNTER 2019-12-04 11:13 | Emergency (ER) | payer MEDICARE, OTHER ==
--- NOTE | 2019-12-04 13:54 | RAD ---
Exam: Chest one view HISTORY:Dialysis shunt Comparison: 02/09/2019 FINDINGS: Cardiac silhouette:Mild cardiomegaly Aorta: Atherosclerosis Pulmonary vessels: Normal Costophrenic angles: Clear Lines and tubes: Right-sided HemoSplit osseous catheter terminates over the cavoatrial junction. LUNGS: No masses or consolidation. Pneumothorax: None Osseous abnormalities: None IMPRESSION: No acute cardiopulmonary process.
== END 2019-12-04 18:11 | disposition home or self-care (01) ==
LOC: ERS 11:13
DX: Z49.01 Encounter for fitting and adjustment of extracorporeal dialysis catheter (principal); I13.0 Hypertensive heart and chronic kidney disease with heart failure and stage 1 through stage 4 chronic kidney disease, or unspecified chronic kidney disease; N18.9 Chronic kidney disease, unspecified; I50.9 Heart failure, unspecified; E11.22 Type 2 diabetes mellitus with diabetic chronic kidney disease; Z87.891 Personal history of nicotine dependence; Z79.899 Other long term (current) drug therapy
CPT/HCPCS: 71045; 80048; 85025; 99284; U0003; 87635

== ENCOUNTER 2019-12-06 05:48 | Day surgery (SDC) | payer MEDICARE ==
[2019-12-05 11:55] VITALS: BMI 301.0
[2019-12-06] MEDS ORDERED: Acetaminophen 500 MG TAB ONE (06:19)
[2019-12-06] MEDS ORDERED: Propofol 1,000 MG/100 ML VIAL IV ONE (06:24)
[2019-12-06] MEDS ORDERED: Heparin 5,000 UNITS/ML VIAL ONE (06:40)
[2019-12-06] MEDS ORDERED: Lidocaine 1% w/Epinephrine 1:100K 20 ML VIAL ONE (06:40)
[2019-12-06] MEDS ORDERED: Bupivacaine 0.25% HCL 30 ML VIAL ONE (06:40)
[2019-12-06] MEDS ORDERED: Protamine Sulfate 50 MG/5 ML VIAL ONE (06:40)
[2019-12-06] MEDS ORDERED: Fentanyl 100 MCG/2 ML VIAL ONE (07:37)
[2019-12-06] MEDS ORDERED: Ondansetron PF 4 MG/2 ML Vial ONE (08:13)
[2019-12-06] MEDS ORDERED: CEFAZOLIN 1 GM VIAL ONE (08:13)
[2019-12-06] MEDS ORDERED: Heparin 10,000 UNITS/ 10 ML VIAL ONE (11:19)
[2019-12-06] MEDS ORDERED: Bupivacaine HCl 0.5%/Epinephrine 1:200,000/PF 30 ml Vial ONE (11:42)
--- NOTE | 2019-12-11 14:24 | PDOC.OP ---
Operative Note - Operative Note Operative Note: PROCEDURE: Left upper arm cephalic vein transposition SURGEON: Osmar Gleason M.D. DATE: 12/06/2019 PREOPERATIVE DIAGNOSIS: End-stage renal failure POSTOPERATIVE DIAGNOSIS: End-stage renal failure HISTORY: Patient with end-stage renal failure undergoing dialysis using a tunneled dialysis catheter. He had a left upper arm cephalic vein fistula placed which has developed matured nicely. However, due to the patient's morbid obesity the nurses are finding it very difficult to access the fistula. Transposition to a more superficial location has been requested. FINDINGS: Good caliber fistula with excellent flow. PROCEDURE IN DETAIL: After informed consent was obtained and appropriate preoperative antibiotics administered the patient was taken to the operating room he was placed in the supine position and monitored anesthesia care was administered. He had had a left arm block placed preoperatively by anesthesia and adequacy of the block was confirmed. An incision was made overlying the palpable fistula just above the antecubital fossa and dissection carried down to the fistula. This had excellent flow and was well dilated and arterialized. The fistula was then dissected free to the level of the shoulder. As dissection was carried out higher in the arm, infusion of local anesthesia was necessary to obtain adequate anesthesia. The entire vein was marked for orientation, mobilized circumferentially, and side branches ligated and divided. Dissection was carried out through the subcutaneous tissues medial to the fistula to the immediate subdermal area and the fistula was transposed to that location taking care not to twist or kink the fistula. The subcutaneous tissues were then reapproximated, securing the fistula and its new superficial location. This was easily palpable and was confirmed to have an excellent thrill and bruit. The wound was irrigated and hemostasis verified. The subcutaneous tissues were closed in 2 layers with 3-0 Monocryl suture. The skin was closed with skin fely and a surface wound VAC placed. The arm was wrapped with an Minh wrap and the patient was taken to recovery in good condition. Estimated blood loss was minimal. There were no complications. There were no specimens
== END 2019-12-06 11:45 | disposition home or self-care (01) ==
LOC: SDC 05:48
PROVIDERS: ATTEND Surgery
PROC: 05SF0ZZ Reposition Left Cephalic Vein, Open Approach (ICD-10-PCS; principal; 2019-12-06)
DX: N18.6 End stage renal disease (principal); E66.01 Morbid (severe) obesity due to excess calories; Z68.42 Body mass index [BMI] 45.0-49.9, adult; Z79.82 Long term (current) use of aspirin; Z79.899 Other long term (current) drug therapy; Z88.8 Allergy status to other drugs, medicaments and biological substances; Z99.2 Dependence on renal dialysis
CPT/HCPCS: 93005; 93010; J0670; J0690; J1644; J2405; J2704; J2720; J3010; S0020